=== PATIENT | female | born 1965 | race Two or more races ===

== ENCOUNTER 2020-04-16 11:18 | Emergency (ER) | payer OTHER ==
[~2020-04-16] VITALS: Ht 157.5 cm; Wt 59.0 kg
[2020-04-16] MEDS ORDERED: TETRACAINE HCL 0.5% OPHT DROP 2 ML BOTTLE OP ONE (11:30)
[2020-04-16] MEDS ORDERED: FLUORESCEIN SODIUM 1 MG STRIP OP ONE (11:30)
[2020-04-16] MEDS ORDERED: TETRACAINE HCL 0.5% OPHT DROP 2 ML BOTTLE ONE (11:31)
[2020-04-16] MEDS ORDERED: FLUORESCEIN SODIUM 1 MG STRIP ONE (11:32)
--- NOTE | 2020-04-16 11:50 | NUR ---
PATIENT WAS SEEN BY .
--- NOTE | 2020-04-16 11:52 | NUR ---
DC AND FOLLOW UP ISNTRUCTIONS GIVEN AND EXPLAINED TO PATIENT WHO STATES SHE UNDERSTANDS ALL INSTRUCTIONS.
[2020-04-16] MEDS ORDERED: CIPROFLOXACIN 0.3% OPHT DROP 2.5 ML BOTTLE ONE (11:53)
[2020-04-16] MEDS ORDERED: CIPROFLOXACIN 0.3% OPHT DROP 2.5 ML BOTTLE OP ONE (12:00)
== END 2020-04-16 12:20 | disposition home or self-care (01) ==
LOC: ER 11:19
DX: H43.12 Vitreous hemorrhage, left eye (principal); S05.02XA Injury of conjunctiva and corneal abrasion without foreign body, left eye, initial encounter; W22.8XXA Striking against or struck by other objects, initial encounter; Y93.H2 Activity, gardening and landscaping; Y92.096 Garden or yard of other non-institutional residence as the place of occurrence of the external cause; Y99.8 Other external cause status; H91.90 Unspecified hearing loss, unspecified ear
CPT/HCPCS: A4663

== ENCOUNTER 2023-04-24 10:37 | Emergency (ER) | payer OTHER ==
[~2023-04-24] VITALS: Ht 157.5 cm; Wt 59.0 kg
[2023-04-24 11:35] LABS: MEAN CORPUSCULAR HEMOGLOBIN 30.2 uug (24.7-32.8); MEAN CORPUSCULAR VOLUME 88.8 fL (75.5-95.3); PLATELET COUNT (AUTO) 195 K/uL (179-408)
[2023-04-24 11:43] LABS: CREATININE 0.8 mg/dL (0.6-1.3); POTASSIUM 4.1 mmol/L (3.5-5.1)
[2023-04-24 11:49] LABS: BILIRUBIN,TOTAL 0.5 mg/dL (0.2-1.0); TOTAL PROTEIN, SERUM 7.3 g/dL (6.4-8.2)
--- NOTE | 2023-04-24 11:50 | NUR ---
seen and examined by
--- NOTE | 2023-04-24 14:04 | NUR ---
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 explained and discuss discharge instructions with Dr. Forde.
--- NOTE | 2023-04-24 14:07 | NUR ---
Patient discharged to home in stable condition. Written and verbal after care instructions given. Patient verbalizes understanding of instructions. Stressed follow up or return to ER for worsening s/s.
[2023-04-24 14:30] VITALS: BP 122/80; TEMP 98; O2SAT 99
== END 2023-04-24 14:32 | disposition home or self-care (01) ==
LOC: ER 10:37
DX: R07.0 Pain in throat (principal); R07.89 Other chest pain
CPT/HCPCS: 36415; 71046; 84484; 85025; 86403; 93005; A4663

== ENCOUNTER 2024-11-21 23:35 | Emergency (ER) | payer OTHER ==
[~2024-11-21] VITALS: Ht 165.1 cm; Wt 56.7 kg
[2024-11-22 01:29] LABS: BASOPHILS % (AUTO) 0.4 % (0.0-2.0); EOSINOPHILS # (AUTO) 0.1 K/uL (0.0-0.7); EOSINOPHILS % (AUTO) 1.7 % (0.0-7.0); HEMOGLOBIN 12.4 g/dL (10.9-14.3); LYMPHOCYTES # (AUTO) 3.1 K/uL (0.8-4.8); MEAN CORPUSCULAR HEMOGLOBIN 30.9 uug (24.7-32.8); MEAN CORPUSCULAR HGB CONC 35 g/dL (32.3-35.6); MEAN CORPUSCULAR VOLUME 89.6 fL (75.5-95.3); MONOCYTES # (AUTO) 0.5 K/uL (0.1-1.30); MONOCYTES % (AUTO) 8.7 % (0.0-11.0); NEUTROPHILS # (AUTO) 2.5 K/uL (1.8-8.9); NEUTROPHILS % (AUTO) 40.2 % (38.5-71.5); PLATELET COUNT (AUTO) 217 K/uL (179-408); RED BLOOD CELL COUNT(AUTO) 4.02 MIL/uL (3.63-4.92); RED CELL DISTRIBUTION WIDTH 13.5 % (12.3-17.7); WHITE BLOOD COUNT (AUTO) 6.2 K/uL (3.8-11.8)
[2024-11-22 01:30] LABS: DIFFERENTIAL COMMENT 1
[2024-11-22 01:34] LABS: CALCIUM 9.8 mg/dL (8.5-10.1); CARBON DIOXIDE 29 mmol/L (21-32); CHLORIDE 104 mmol/L (98-107); CREATININE 0.8 mg/dL (0.6-1.3); GLUCOSE 93 mg/dL (74-106); SODIUM SERUM 141 mmol/L (136-145); UREA NITROGEN, BLOOD 13 mg/dL (7-18)
[2024-11-22 01:43] LABS: ALANINE AMINOTRANSFERASE 19 U/L (14-59); ALBUMIN 3.8 g/dL (3.4-5.0); ALKALINE PHOSPHATASE 93 U/L (50-136); ASPARTATE AMINOTRANSFERASE 26 U/L (15-37); BILIRUBIN,DIRECT 0.1 mg/dL (0.0-0.2); BILIRUBIN,TOTAL 0.2 mg/dL (0.2-1.0); TOTAL PROTEIN, SERUM 7.1 g/dL (6.4-8.2)
[2024-11-22] MEDS ORDERED: NAPR-1196 PO (04:08)
[2024-11-22 04:19] VITALS: BP 127/78; O2SAT 98
== END 2024-11-22 04:20 | disposition home or self-care (01) ==
LOC: ER 23:49
DX: M79.601 Pain in right arm (principal); R07.9 Chest pain, unspecified; Z86.69 Personal history of other diseases of the nervous system and sense organs; Z87.09 Personal history of other diseases of the respiratory system; Z60.2 Problems related to living alone
CPT/HCPCS: 36415; 71045; 84484; 85025; A4606; A4663